=== PATIENT | male | born 1970 | race Caucasian/White ===

== ENCOUNTER 2022-05-19 22:59 | Inpatient (IN) ==
[2022-05-19] MEDS ORDERED: SODIUM CHLORIDE 0.9% 1000ML 1,000 ML IV ONE (23:40)
[2022-05-19] MEDS ORDERED: FAMOTIDINE 20MG IV PUSH 20 MG/5 ML SYR IV STA (23:40)
[2022-05-19] MEDS ORDERED: LORazepam 2 MG/1 ML VIAL IV STA (23:53)
[2022-05-19] MEDS ORDERED: GABAPENTIN 600 MG TAB PO ONE (23:57)
[2022-05-19] MEDS ORDERED: GABAPENTIN 1200MG ALCOHOL WITHDRAWAL LOAD PO STA (23:57)
--- NOTE | 2022-05-20 00:04 | Emergency Department Note ---
Impression & Plan Alcohol abuse, Alcohol withdrawal, Vomiting ED Provider Note CHIEF COMPLAINT: Alcohol intoxication, vomiting HISTORY OF PRESENT ILLNESS: This 52-year-old male patient presents to the emergency department with history of alcohol abuse and dependency. Patient is currently homeless and staying in a local motel, states he was in the emergency department several days ago. He went home and began drinking once again. Patient had severe withdrawal symptoms after repetitive vomiting and attempted to drink a 750 mL gin today. He states he vomited everything that he drank. He does not believe that he is significantly intoxicated at this time rather is asking for "sedatives" for his symptoms. He is concerned that Ativan will not be strong enough. Patient is mostly complaining of throat pain from the vomiting and anxiety. He states he would like to stay in the hospital for alcohol withdrawal/detox. REVIEW OF SYSTEMS: A review of systems was performed with positives and pertinent negatives listed in the history of present illness. 10 systems were reviewed and are otherwise negative. ALLERGIES: see below MEDICATIONS: see below PMH: see below SOCIAL HISTORY: see below DDx:Overdose, toxicologic, alcohol withdrawal, hypoglycemia, electrolyte abnormalities, cardiac sources, intracerebral event, neurologic, trauma, as well as other pathologies. PHYSICAL EXAM: Vital signs reviewed. General: Agitated, disheveled 52-year-old male, writhing in bed. HEENT: No scleral icterus, PERRLA, neck supple. Atraumatic. Moist mucous membranes. Cardiovascular: Regular rate and rhythm, no extra sounds. Pulmonary: Clear to auscultation bilaterally, normal work of breathing. Abdomen: Soft, nontender, nondistended, positive bowel sounds. Musculoskeletal: Atraumatic, no peripheral edema. Neurologic: Patient awake alert and oriented x 3, speech is clear Skin: Warm, dry, no rash EMERGENCY DEPARTMENT COURSE/MDM: This patient was evaluated and appeared to be in no significant distress. IV access was obtained and laboratory work was drawn. The patient was placed on the satellite project site monitor and noted to be in a normal sinus rhythm at 91 bpm to my interpretation. Patient's EKG reveals no evidence of acute ischemia. Patient was hydrated with normal saline solution, 1 L bolus. He was medicated with IV Zofran and IV Pepcid. Patient was also given Ativan 2 mg IV for withdrawal symptoms. Blood alcohol is noted to be just under 300. Given the patient's lack of outpatient resources, desires for alcohol detox and vomiting/withdrawal symptoms, the patient was discussed with the hospitalist, Dr. Jauregui for admission and further management. MONITORING: An order for cardiac monitoring was placed and the patient is noted to be in a normal sinus rhythm at 98 beats per minute. 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: No Beliefs That Will Affect Care: None Current Living Situation: Homeless and Other Current Living Situation Comment: patient currently staying at [facility] in [place] Other Information That Helps Us Care for You: No Feels Safe at Home: Yes Safety Concerns: Feels Safe At This Time Assistive Devices: None Allergies Allergies Allergy/AdvReac Type Severity Reaction Status Date / Time No Known Allergies Allergy Verified 05/19/22 23:21 Home Meds Home Medications Medication Instructions Recorded Confirmed No Known Home Medications 05/19/22 05/19/22 Results & Data (ED) Vital Signs Vital Signs - 24 hr 05/19/22 23:16 05/20/22 00:19 05/20/22 00:22 Temperature 36.5 C Temperature Source Oral Pulse Rate 93 H Pulse Rate [Apical] 86 Pulse Rhythm [Apical] Regular Respiratory Rate 18 16 Respiratory Effort / Characteristics Non-Labored Spontaneous Non-Labored Spontaneous Respiratory Depth Normal Normal Respiratory Pattern Regular Regular Blood Pressure 129/80 Blood Pressure [Right Arm] 131/90 Blood Pressure Mean 96 Blood Pressure Mean [Right Arm] 103 Blood Pressure Position Lying Blood Pressure Position [Right Arm] Semi-fowlers Pulse Oximetry 98 90 96 Oxygen Delivery Method Room Air Room Air Nasal Cannula Nasal Cannula Oxygen Flow Rate 0 2 Sepsis Recent Fever Within 48 Hours No Sepsis New/Unexplained Change in Mental Status N/A Sepsis Action Taken by Nursing No Action Required Fraction of Inspired Oxygen - Titration 2 Pulse Oximetry Post Tiitration 96 05/20/22 01:17 05/20/22 01:18 Temperature Temperature Source Pulse Rate Pulse Rate [Apical] 91 H Pulse Rhythm [Apical] Respiratory Rate 14 Respiratory Effort / Characteristics Non-Labored Spontaneous Respiratory Depth Normal Respiratory Pattern Regular Blood Pressure Blood Pressure [Right Arm] 132/85 Blood Pressure Mean Blood Pressure Mean [Right Arm] 100 Blood Pressure Position Blood Pressure Position [Right Arm] Semi-fowlers Pulse Oximetry 96 96 Oxygen Delivery Method Nasal Cannula Nasal Cannula Oxygen Flow Rate 2 2 Sepsis Recent Fever Within 48 Hours Sepsis New/Unexplained Change in Mental Status Sepsis Action Taken by Nursing Fraction of Inspired Oxygen - Titration Pulse Oximetry Post Tiitration Home Medications Current Medication List: was personally reviewed by me Laboratory Data Attestation: I reviewed the patient's lab results. 05/19/22 23:41 05/19/22 23:41 Lab Results 05/19/22 05/19/22 05/19/22 Range/Units 23:40 23:41 23:41 WBC 5.33 (4.8-10.8) K/ul RBC 4.76 (4.70-6.10) M/uL Hgb 14.3 (14.0-18.0) g/dl Hct 41.2 L (42.0-52.0) % MCV 86.6 (80.0-100.0) fL MCH 30.0 (25.0-34.0) pg MCHC 34.7 (32.0-36.0) g/dL RDW Std Deviation 40.9 (36.4-46.3) fL RDW Coeff of Otto 12.9 (11.5-14.5) % Plt Count 153 (130-400) K/uL MPV 9.9 (9.4-12.4) fL Immature Gran % (Auto) 0.2 % Neut % (Auto) 62.8 % Lymph % (Auto) 31.9 % [place] % (Auto) 4.9 % Eos % (Auto) 0.0 % Baso % (Auto) 0.2 % Neut # (Auto) 3.35 (1.40-6.50) K/uL Lymph # (Auto) 1.70 (1.2-3.4) K/uL [place] # (Auto) 0.26 (0.11-0.59) K/uL Eos # (Auto) 0.00 (0-0.50) K/uL Baso # (Auto) 0.01 (0-0.2) K/uL Immature Gran # (Auto) 0.01 (0.01-0.20) K/uL Sodium 137 (136-145) mmol/L Potassium 3.1 L (3.5-5.1) mmol/L Chloride 92 L (98-107) mmol/L Carbon Dioxide 33 H (21-32) mmol/L Anion Gap 12 H (3-11) BUN 13 (6-23) mg/dl Creatinine 0.69 (0.6-1.4) mg/dl Est Cr Clr Drug Dosing Not Reportable Est GFR ( Amer) 127.4 ml/min Est GFR (Non-Af Amer) 109.9 ml/min BUN/Creatinine Ratio 18.8 (10-20) Glucose 148 H (70-99(Fasting)) mg/dl Calcium 8.5 (8.5-10.1) mg/dl Phosphorus 2.3 L (2.5-4.9) mg/dl Magnesium 2.0 (1.7-2.4) mg/dl Total Bilirubin 0.7 (0.2-1.0) mg/dl AST 60 H (13-39) U/L ALT 44 (7-52) U/L Alkaline Phosphatase 83 (34-104) U/L Total Protein 7.1 (6.0-8.3) gm/dl Albumin 4.0 (3.4-5.0) gm/dl Globulin 3.1 (2.5-4.0) gm/dl Albumin/Globulin Ratio 1.3 (0.9-2) Lipase 22 (11-82) U/L Ethyl Alcohol mg/dL (<10.0) mg/dl SARS-CoV-2, RNA, NAAT (NEGATIVE) 05/19/22 05/19/22 05/20/22 Range/Units 23:41 23:41 00:09 WBC (4.8-10.8) K/ul RBC (4.70-6.10) M/uL Hgb (14.0-18.0) g/dl Hct (42.0-52.0) % MCV (80.0-100.0) fL MCH (25.0-34.0) pg MCHC (32.0-36.0) g/dL RDW Std Deviation (36.4-46.3) fL RDW Coeff of Otto (11.5-14.5) % Plt Count (130-400) K/uL MPV (9.4-12.4) fL Immature Gran % (Auto) % Neut % (Auto) % Lymph % (Auto) % [place] % (Auto) % Eos % (Auto) % Baso % (Auto) % Neut # (Auto) (1.40-6.50) K/uL Lymph # (Auto) (1.2-3.4) K/uL [place] # (Auto) (0.11-0.59) K/uL Eos # (Auto) (0-0.50) K/uL Baso # (Auto) (0-0.2) K/uL Immature Gran # (Auto) (0.01-0.20) K/uL Sodium (136-145) mmol/L Potassium (3.5-5.1) mmol/L Chloride (98-107) mmol/L Carbon Dioxide (21-32) mmol/L Anion Gap (3-11) BUN (6-23) mg/dl Creatinine (0.6-1.4) mg/dl Est Cr Clr Drug Dosing Est GFR ( Amer) ml/min Est GFR (Non-Af Amer) ml/min BUN/Creatinine Ratio (10-20) Glucose (70-99(Fasting)) mg/dl Calcium (8.5-10.1) mg/dl Phosphorus (2.5-4.9) mg/dl Magnesium (1.7-2.4) mg/dl Total Bilirubin (0.2-1.0) mg/dl AST (13-39) U/L ALT (7-52) U/L Alkaline Phosphatase (34-104) U/L Total Protein (6.0-8.3) gm/dl Albumin (3.4-5.0) gm/dl Globulin (2.5-4.0) gm/dl Albumin/Globulin Ratio (0.9-2) Lipase (11-82) U/L Ethyl Alcohol mg/dL 279.0 H Cancelled (<10.0) mg/dl SARS-CoV-2, RNA, NAAT NEGATIVE (NEGATIVE) Administered Medications Chlordiazepoxide HCl (Chlordiazepoxide Hcl 25 Mg Cap) 50 mg PO Q6H ARTHUR; Taper Stop: 05/23/22 04:29 Last Admin: 05/20/22 04:42 Dose: 50 mg Documented By: MEAGHAN Multivitamins 10 ml/ Thiamine HCl 100 mg/ Folic Acid 1 mg/Sodium Chloride 1,011.2 mls @ 500 mls/hr IV .Q2H2M ONE Stop: 05/20/22 06:16 Last Admin: 05/20/22 04:41 Dose: 500 mls/hr Documented By: MEAGHAN Discontinued Medications Gabapentin (Gabapentin 1200mg Alcohol Withdrawal Load) 1 each PO NOW STA; Protocol Stop: 05/19/22 23:58 Last Admin: 05/20/22 00:17 Dose: Not Given Documented By: MEAGHAN Gabapentin (Gabapentin 600 Mg Tab) 1,200 mg PO NOW ONE Stop: 05/19/22 23:58 Last Admin: 05/20/22 00:04 Dose: 1,200 mg Documented By: MEAGHAN Sodium Chloride (Nss 1000ml) 1,000 mls @ 999 mls/hr IV .Q1H1M ONE Stop: 05/20/22 00:40 Last Infusion: 05/20/22 00:46 Dose: 0 mls/hr Documented By: Admin: 05/19/22 23:45 Dose: 999 mls/hr Documented By: MEAGHAN Famotidine (Pepcid 20mg Iv Push) 20 mg in 5 mls @ 2.5 mls/min IV NOW STA Stop: 05/19/22 23:41 Last Admin: 05/20/22 00:04 Dose: 2.5 mls/min Documented By: MEAGHAN Lorazepam (Lorazepam 2 Mg/1 Ml Vial) 2 mg IV NOW STA Stop: 05/19/22 23:54 Last Admin: 05/20/22 00:04 Dose: 2 mg Documented By: MEAGHAN Discharge Plan Visit Data Chief Complaint: Alcohol Intoxication Stated Complaint: ALCOHOL OVERDOSE/ANXIETY ED Provider: Tabitha Murrell Discharge Problem: Alcohol abuse, Alcohol withdrawal, Vomiting Patient Disposition: Admitted As Inpatient Discharge Instructions Interventions: ED Discharge Assessment Last Done: 05/20/22 03:57
[2022-05-20 00:07] LABS: Basophils # (auto) 0.01 K/uL (0-0.2); Basophils % (auto) 0.2 %; Hematocrit (blood only) 41.2 % (42.0-52.0); Hemoglobin 14.3 g/dl (14.0-18.0); Immature Granulocytes # (auto) 0.01 K/uL (0.01-0.20); Immature Granulocytes % (auto) 0.2 %; Lymphocytes % (auto) 31.9 %; Mean Corpuscular Hgb Conc 34.7 g/dL (32.0-36.0); Mean Corpuscular Volume 86.6 fL (80.0-100.0); Mean Platelet Volume 9.9 fL (9.4-12.4); Monocytes # (auto) 0.26 K/uL (0.11-0.59); Monocytes % (auto) 4.9 %; Neutrophils # (auto) 3.35 K/uL (1.40-6.50); Neutrophils % (auto) 62.8 %; Platelet Count 153 K/uL (130-400); RDW Coefficient of Variation 12.9 % (11.5-14.5); RDW Standard Deviation 40.9 fL (36.4-46.3); Red Blood Count 4.76 M/uL (4.70-6.10); White Blood Count 5.33 K/ul (4.8-10.8)
[2022-05-20 00:19] LABS: Alanine Aminotransferase 44 U/L (7-52); Albumin Globulin Ratio 1.3 (0.9-2); Alkaline Phosphatase 83 U/L (34-104); Anion Gap 12 (3-11); Aspartate Aminotransferase 60 U/L (13-39); BUN Creatinine Ratio 18.8 (10-20); Bilirubin,Total 0.7 mg/dl (0.2-1.0); Blood Urea Nitrogen 13 mg/dl (6-23); Calcium 8.5 mg/dl (8.5-10.1); Carbon Dioxide 33 mmol/L (21-32); Chloride 92 mmol/L (98-107); Est GFR (African American) 127.4 ml/min; Est GFR (Non-African American) 109.9 ml/min; Globulin 3.1 gm/dl (2.5-4.0); Glucose 148 mg/dl (70-99(Fasting)); Potassium 3.1 mmol/L (3.5-5.1); Sodium 137 mmol/L (136-145); Total Protein 7.1 gm/dl (6.0-8.3)
[2022-05-20 01:01] LABS: Phosphorus 2.3 mg/dl (2.5-4.9)
--- NOTE | 2022-05-20 01:44 | History & Physical Report ---
Date of Service May 20, 2022 Assessment & Plan (1) Alcohol abuse: Plan: EtOH abuse and withdrawal. Patient with longstanding history of EtOH abuse with withdrawal symptoms. Last drink 05/19/22 around 20:00. Presently HD stable, no tremor, he just received 2mg of IV Ativan and Gabapentin as well. -Admit to medical with telemetry -Initiate Librium per protocol -AWSS with IV Ativan as needed -Banana bag x 500mL ordered -K and PO4 repletion with 9mmol KPhos -Thiamine and B12 daily Numbness and tingling patient reports numbness and tingling in his bilateral fingertips, arms and perioral prior to arrival. Symptoms have markedly improved. No focal neurologic deficits. Suspect anxiety largely contributing to these transient symptoms. -Continue to monitor (2) Depression: Plan: Depression patient reports depression. His home medications include Fluoxetine, Wellbutrin and Trazodone and Hydroxyzine for sleep. He reports he has not been taking his medications for a long while. He does not routinely follow with a PCP. -Will hold off on initiating home medications for now. -Request records from [facility] rehab -Consider Psychiatry consultation (3) GERD (gastroesophageal reflux disease): Plan: GERD patient reports severe GERD symptoms. He is on Omeprazole at home but has not been taking it recently -Protonix 40mg po daily History of Present Illness Primary Care Provider: NO PCP Migue Bellamy is a 52yo male with history of EtOH abuse with pancreatitis, Depression and GERD presenting requesting medical alcohol detox. Patient is originally from [place]. He recently completed rehabilitation at [facility]. He has been living in a hotel locally. He unfortunately started drinking again, reports drinking approximately 1/5L of gin daily. He tried to cut back on his alcohol intake but began feeling ill. He also began having some hallucinations today and started feeling some numbness and tingling in his bilateral fingertips and around his mouth. His last drink was 05/19/22 around 20:00. Patient reports diffuse abdominal pain as well as vomiting for several days. He has had poor appetite and has not eaten much over the last several days. Patient has longstanding history of EtOH abuse. He has been to rehab in the past as well as detox programs. He participates in AA as well. Prior withdrawal symptoms include nausea, tremors and occasional hallucinations. No history of seizures. In the ER he is afebrile, HD stable. He reports feeling tremulous which improved with Ativan. No additional complaints at this time. Allergies Allergy/AdvReac Type Severity Reaction Status Date / Time No Known Allergies Allergy Verified 05/19/22 23:21 Home Medications Medication Instructions Recorded Confirmed Type No Known Home Medications 05/19/22 05/19/22 History Past Med/Surg History Medical History (Updated 05/20/22 @ 02:51 by Shae Jauregui DO) Alcoholic intoxication Depression GERD (gastroesophageal reflux disease) Surgical History (Updated 05/20/22 @ 02:51 by Shae Jauregui DO) No significant past surgical history Family History (Updated 05/20/22 @ 02:52 by Shae Jauregui DO) Other No significant family history Social History Smoking Status: Never smoker Preferred Language: Lao Feels Safe at Home: Yes Review of Systems Review of Systems: All systems reviewed & are unremarkable except as noted in HPI & below Physical Exam Physical Exam: General: patient resting comfortably, NAD, non-toxic in appearance, AA&O x 4 Skin: warm, dry, intact, no rashes or lesions HEENT: NC/AT, PERRL, EOMI, anicteric sclera, conjunctiva without injection, external ear normal to inspection and nontender, nares patent, moist mucus membranes, dentition intact, no oropharyngeal lesions, neck supple, trachea midline, no LAD, no thyromegaly, no JVD Heart: +S1/S2, regular, no m/r/g Lungs: equal air entry bilaterally, no rales/rhonchi/wheezes Abd: +BS, soft, diffusely tender with no rebound/guarding or peritonitis Ext: warm, 2+ pulses in UE/LE bilaterally, no clubbing/cyanosis or edema Neuro: nonfocal, patient AA&O x 4, speech intact, no facial droop, moving all extremities on command with equal strength 5/5 Results & Data Results & Data ([facility]) Vital Signs (Past 12 Hours) Vital Signs Temp Pulse Pulse Resp BP BP Pulse Ox 05/20/22 01:18 96 05/20/22 01:17 91 H 14 132/85 96 05/20/22 00:22 86 16 131/90 96 05/20/22 00:19 90 05/19/22 23:16 36.5 C 93 H 18 129/80 98 O2 Del Method O2 Flow Rate 05/20/22 01:18 Nasal Cannula 2 05/20/22 01:17 Nasal Cannula 2 05/20/22 00:22 Nasal Cannula 2 05/20/22 00:19 Room Air, Nasal Cannula 0 05/19/22 23:16 Room Air Laboratory Results Laboratory Results WBC 5.33 K/ul (4.8-10.8) 05/19/22 23:41 RBC 4.76 M/uL (4.70-6.10) 05/19/22 23:41 Hgb 14.3 g/dl (14.0-18.0) 05/19/22 23:41 Hct 41.2 % (42.0-52.0) L 05/19/22 23:41 MCV 86.6 fL (80.0-100.0) 05/19/22 23:41 MCH 30.0 pg (25.0-34.0) 05/19/22 23:41 MCHC 34.7 g/dL (32.0-36.0) 05/19/22 23:41 RDW Std Deviation 40.9 fL (36.4-46.3) 05/19/22 23:41 RDW Coeff of Otto 12.9 % (11.5-14.5) 05/19/22 23:41 Plt Count 153 K/uL (130-400) 05/19/22 23:41 MPV 9.9 fL (9.4-12.4) 05/19/22 23:41 Immature Gran % (Auto) 0.2 % 05/19/22 23:41 Neut % (Auto) 62.8 % 05/19/22 23:41 Lymph % (Auto) 31.9 % 05/19/22 23:41 [place] % (Auto) 4.9 % 05/19/22 23:41 Eos % (Auto) 0.0 % 05/19/22 23:41 Baso % (Auto) 0.2 % 05/19/22 23:41 Neut # (Auto) 3.35 K/uL (1.40-6.50) 05/19/22 23:41 Lymph # (Auto) 1.70 K/uL (1.2-3.4) 05/19/22 23:41 [place]oca # (Auto) 0.26 K/uL (0.11-0.59) 05/19/22 23:41 Eos # (Auto) 0.00 K/uL (0-0.50) 05/19/22 23:41 Baso # (Auto) 0.01 K/uL (0-0.2) 05/19/22 23:41 Immature Gran # (Auto) 0.01 K/uL (0.01-0.20) 05/19/22 23:41 Sodium 137 mmol/L (136-145) 05/19/22 23:41 Potassium 3.1 mmol/L (3.5-5.1) L 05/19/22 23:41 Chloride 92 mmol/L (98-107) L 05/19/22 23:41 Carbon Dioxide 33 mmol/L (21-32) H 05/19/22 23:41 Anion Gap 12 (3-11) H 05/19/22 23:41 BUN 13 mg/dl (6-23) 05/19/22 23:41 Creatinine 0.69 mg/dl (0.6-1.4) 05/19/22 23:41 Est Cr Clr Drug Dosing Not Reportable 05/19/22 23:41 Est GFR ( Amer) 127.4 ml/min 05/19/22 23:41 Est GFR (Non-Af Amer) 109.9 ml/min 05/19/22 23:41 BUN/Creatinine Ratio 18.8 (10-20) 05/19/22 23:41 Glucose 148 mg/dl (70-99(Fasting)) H 05/19/22 23:41 Calcium 8.5 mg/dl (8.5-10.1) 05/19/22 23:41 Phosphorus 2.3 mg/dl (2.5-4.9) L 05/19/22 23:41 Magnesium 2.0 mg/dl (1.7-2.4) 05/19/22 23:41 Total Bilirubin 0.7 mg/dl (0.2-1.0) 05/19/22 23:41 AST 60 U/L (13-39) H 05/19/22 23:41 ALT 44 U/L (7-52) 05/19/22 23:41 Alkaline Phosphatase 83 U/L (34-104) 05/19/22 23:41 Total Protein 7.1 gm/dl (6.0-8.3) 05/19/22 23:41 Albumin 4.0 gm/dl (3.4-5.0) 05/19/22 23:41 Globulin 3.1 gm/dl (2.5-4.0) 05/19/22 23:41 Albumin/Globulin Ratio 1.3 (0.9-2) 05/19/22 23:41 Ethyl Alcohol mg/dL 279.0 mg/dl (<10.0) H 05/19/22 23:41 Ethyl Alcohol mg/dL Cancelled 05/19/22 23:41 SARS-CoV-2, RNA, NAAT NEGATIVE (NEGATIVE) 05/20/22 00:09 PG Care Time/CCT Total # of Minutes Spent Total Time Spent with Patient: Total time spent is greater than 50% in coordination of care (as documented) at patient's floor/unit and/or counseling patient: Coding Level of Care Code 58854 INT INP/OBS CARE 2/55MIN Diagnoses Alcohol abuse F10.10 Depression F32.A GERD (gastroesophageal reflux disease) K21.9
[2022-05-20] MEDS ORDERED: POTASSIUM PHOS 3 MMOL/1 ML INFUSION IV STA (03:57)
[2022-05-20] MEDS ORDERED: LORazepam 2 MG/1 ML VIAL IV PRN (03:57)
[2022-05-20] MEDS ORDERED: Ativan IV Alcohol Withdrawal--Active Protocol IV PRN (03:57)
[2022-05-20] MEDS ORDERED: chlordiazePOXIDE ALCOHOL WITHDRAWL 50MG PO STA (03:57)
[2022-05-20] MEDS ORDERED: MULTI-VITAMIN INFUSION 10 ML, THIAMINE HCL 100 MG, FOLIC ACID 1 MG in SODIUM CHLORIDE 0... IV ONE (04:15)
[2022-05-20] MEDS: chlordiazePOXIDE HCl 25 MG CAP PO SCH ×4 (04:42→22:07)
[2022-05-20] MEDS ORDERED: GABAPENTIN 600 MG TAB PO SCH ×2 (06:00→20:00)
[2022-05-20] MEDS ORDERED: POTASSIUM PHOSPHATE 9 MMOL in SODIUM CHLORIDE 0.9% 250 ML IV ONE (06:00)
[2022-05-20] MEDS ORDERED: THIAMINE HCL 100 MG TAB PO SCH (09:00)
[2022-05-20] MEDS ORDERED: FOLIC ACID 1 MG TAB PO SCH (09:00)
[2022-05-20] MEDS ORDERED: CHLORASEPTIC 1.4% SOLN 180 ML BTL MT PRN (09:38)
[2022-05-20] MEDS ORDERED: ACETAMINOPHEN 1,000 MG/100 ML VIAL IV STA (09:38)
[2022-05-20] MEDS ORDERED: KETOROLAC TROMETHAMINE 15 MG/ML VIAL IV ONE (09:38)
[2022-05-20] MEDS: FOLIC ACID 1 MG in SYRINGE 9.8 ML IV SCH (09:41)
[2022-05-20] MEDS: THIAMINE HCL 200 MG in SODIUM CHLORIDE 0.9% 50 ML IV SCH (09:42)
[2022-05-20] MEDS: LORazepam 2 MG/1 ML VIAL IV PRN ×5 (10:30→22:08)
--- NOTE | 2022-05-20 11:19 | Hospitalist Progress Note ---
Date of Service May 20, 2022 Assessment & Plan (1) Alcohol abuse: Plan: EtOH abuse and withdrawal. Patient with longstanding history of EtOH abuse with withdrawal symptoms. Last drink 05/19/22 around 20:00. Presently HD stable -Received Ativan and gabapentin, banana bag and KPO4 repletion in ER -Continue Librium taper and AWSS protocol for withdrawal -Continue thiamine and folate daily -Withdrawal symptoms do appear to be improving and benign neurologic exam thus far -Ultimately plan to d/c to inpatient detox program Throat pain -Suspect this is secondary to his emesis episodes -Continual emesis has resolved, I do not suspect a Shayla Dong tear/Boerhaave syndrome at present -Continue to monitor -Tylenol, Toradol PRN for pain Depression patient reports depression. He does not routinely follow with a PCP. -Will hold off on initiating home medications for now- Prozac, Wellbutrin, trazodone, Vistaril -[facility] -Consider psychiatry consultation given his substance use and psychosocial risk factors as pt's mentation improves GERD patient reports severe GERD symptoms. He is on Omeprazole at home but has not been taking it recently -Protonix 40mg IV daily FENGI: Regular Code status: Full DVT ppx: SCDs Isolation: None Dispo: Ultimately to inpatient rehab (2) Depression: (3) GERD (gastroesophageal reflux disease): Admission and Anticipated Discharge Date Admission Date: May 20, 2022 Supervising Physician Co-Signing Physician Notes Patient admitted after multiple recent ER visits secondary to alcohol intoxication. He has history of alcohol dependence and has come from [facility] in [place] after being in the rehab facility for 30 days. He is originally from [facility] and is currently homeless. He states that he has burned bridges with his family back in [place] and is homeless. He does state that he has health insurance but is currently admitted for monitoring after recent alcohol intoxication. He would be interested in naltrexone. Tomorrow, will start naltrexone as long as liver enzymes are stable Continue with RICKEY protocol and screening Discuss intense alcohol rehab; case management consulted Patient does have ongoing esophagitis so continue with PPI; if symptoms worsen or do not improve consider EGD Subjective No acute events overnight. Pt reports mild improvement in his symptoms from admission but still experiencing malaise, throat pain and nausea. He did request opioid pain medication but was amenable to trying Tylenol/Toradol first. Denies cravings for alcohol, no tremors/sweating during my evaluation. Review of Systems Review of Systems: Per HPI Physical Exam Physical Exam: General: patient resting comfortably, NAD, non-toxic in appearance Skin: warm, dry, intact, no rashes or lesions HEENT: NC/AT, PERRL, EOMI, anicteric sclera, conjunctiva without injection, external ear normal to inspection and nontender, nares patent, moist mucus membranes, dentition intact, no oropharyngeal lesions, neck supple, trachea midline, no LAD, no thyromegaly, no JVD Heart: +S1/S2, regular, no m/r/g Lungs: equal air entry bilaterally, no rales/rhonchi/wheezes Abd: +BS, soft, mild diffuse tenderness with no rebound/guarding or peritonitis Ext: warm, 2+ pulses in UE/LE bilaterally, no clubbing/cyanosis or edema Neuro: nonfocal, patient AA&O x 3, speech intact, no facial droop, moving all extremities on command with equal strength 5/5 Results & Data Results & Data ([facility] [place]) Vital Signs (Past 12 Hours) Vital Signs Temp Pulse Pulse Resp BP BP Pulse Ox 05/20/22 09:39 36.8 C 87 22 154/107 H 98 05/20/22 04:00 05/20/22 04:00 36.7 C 87 16 124/84 95 05/20/22 02:53 85 16 120/81 93 05/20/22 01:18 96 05/20/22 01:17 91 H 14 132/85 96 05/20/22 00:22 86 16 131/90 96 05/20/22 00:19 90 05/19/22 23:16 36.5 C 93 H 18 129/80 98 Pulse Ox O2 Del Method O2 Del Method O2 Flow Rate 05/20/22 09:39 Room Air 05/20/22 04:00 95 Room Air 05/20/22 04:00 Room Air 05/20/22 02:53 Room Air 05/20/22 01:18 Nasal Cannula 2 05/20/22 01:17 Nasal Cannula 2 05/20/22 00:22 Nasal Cannula 2 05/20/22 00:19 Room Air, Nasal Cannula 0 05/19/22 23:16 Room Air Resident Activity Tracking Resident Involvement: Resident Care Provided Care Provided: Adult Hospital Medicine
[2022-05-20] MEDS: PANTOprazole 40 MG in SYRINGE 0 ML IV SCH (15:05)
[2022-05-20] MEDS: ACETAMINOPHEN 325 MG TAB PO PRN ×2 (15:20→19:42)
[2022-05-20] MEDS: FAMOTIDINE 20 MG in SYRINGE 3 ML IV SCH (21:07)
[2022-05-21] MEDS: LORazepam 2 MG/1 ML VIAL IV PRN ×5 (01:02→20:30)
[2022-05-21] MEDS ORDERED: ONDANSETRON INJ 2 MG/ML 2 ML VIAL IV STA (01:10)
[2022-05-21] MEDS: chlordiazePOXIDE HCl 25 MG CAP PO SCH ×3 (04:56→20:32)
--- NOTE | 2022-05-21 06:41 | Hospitalist Progress Note ---
Date of Service May 21, 2022 Assessment & Plan (1) Alcohol abuse: Plan: This is a 52-year-old male with a history of alcohol use disorder with recent rehab completion at [facility], pancreatitis, depression, GERD who presented to [facility] requesting medical alcohol detox assistance. He remains hospitalized for oversight and management of withdrawal. Alcohol Withdrawal / Alcohol Use Disorder -- reports consuming 750cc of gin/day; last drink 05/19/22 around 20:00.No h/o seizures. -Continue Librium taper and AWSS protocol for withdrawal -Continue IV thiamine and folate repletion while here -AUD: Has participated in inpatient rehab programs in the past, AA -- should consider initiation of naltrexone (IM/PO) prior to departure if amenable, extensive conversation at bedside today (can also discuss SMART) -Withdrawal symptoms do appear to be improving and benign neurologic exam thus far -Ultimately would like to d/c to inpatient detox program; will d/w case management given that patient is homeless and does not have formal identification -IV PPI -- will continue for now -Depression management as below Depression patient reports depression. He does not routinely follow with a PCP. -Request records from [facility] -- pending, working with CM -Reportedly on fluoxetine, bupropion, trazodone, hydroxyzine -- restart GERD patient reports severe GERD symptoms. He is on Omeprazole at home but has not been taking it recently -Protonix 40mg IV daily Throat pain -Suspect this is secondary to his emesis episodes -Continue to monitor FENGI: Regular Code status: Full DVT ppx: SCDs Isolation: None Dispo: CM assisting. Unclear. (2) Depression: (3) GERD (gastroesophageal reflux disease): Admission and Anticipated Discharge Date Admission Date: May 20, 2022 Supervising Physician Co-Signing Physician Notes Patient admitted after multiple recent ER visits secondary to alcohol intoxication. He has history of alcohol dependence and has come from [facility] in [place] after being in the rehab facility for 30 days. He is originally from [facility] and is currently homeless. He states that he has burned bridges with his family back in [place] and is homeless. He does state that he has health insurance but is currently admitted for monitoring after recent alcohol intoxication. He would be interested in naltrexone. Tomorrow, will start naltrexone as long as liver enzymes are stable Continue with RICKEY protocol and screening Discuss intense alcohol rehab; case management consulted Patient does have ongoing esophagitis so continue with PPI; if symptoms worsen or do not improve consider EGD Subjective I also saw the patient with the resident physician and confirmed finley portions of history and physical examination. I agree with the impression and plan as noted in resident documentation. 137/88, 83, 20, 36.3, 97% on room air Exam per resident note Data Hemoglobin 12.1, platelet count 103 Sodium 136, potassium 2.9, BUN 9, creatinine 0.59 AST 46, ALT 36 Impression and plan Alcohol abuse Depression Anemia/thrombocytopenia, likely secondary to alcoholic marrow suppression Continue Librium taper IV thiamine and folate repletion Restart home medications Replete serum potassium and recheck in a.m. Additional diagnoses per resident documentation Review of Systems Review of Systems: as per HPI Physical Exam Physical Exam: General: Tired appearing 52-year old male who is alert, oriented, and appears in no acute distress. Trmors noted in upper extremities with outstretched hands HEENT: NCAT. - Eyes - Sclera are white, anicteric, and without injection. - Mouth - MMM - Neck - supple, no appreciable JVD Cardiac: Normal rate and regular rhythm; S1 and S2 present with no murmurs, rubs, or gallops. Pulmonary: Good respiratory effort with symmetric expansion of the chest. No use of accessory muscles. Lungs were clear to auscultation bilaterally with no crackles or wheezes. Abdominal: Normoactive bowel sounds. Abdomen was soft, nondistended, and non- tender to palpation. Results & Data Results & Data ([facility]) Vital Signs (Past 12 Hours) Vital Signs Temp Pulse Pulse Pulse Resp BP BP 05/21/22 05:50 84 18 131/93 05/21/22 03:37 84 18 137/81 05/21/22 02:06 36.4 C L 79 18 148/100 H 05/21/22 01:34 84 05/21/22 00:54 36.7 C 98 H 20 160/115 H 05/20/22 21:55 36.9 C 90 20 122/79 05/20/22 19:34 37.1 C 94 H 18 153/91 H Pulse Ox O2 Del Method 05/21/22 05:50 98 Room Air 05/21/22 03:37 98 Room Air 05/21/22 02:06 95 Room Air 05/21/22 01:34 05/21/22 00:54 98 Room Air 05/20/22 21:55 96 Room Air 05/20/22 19:34 96 Room Air Resident Activity Tracking Resident Involvement: Resident Care Provided Care Provided: Adult Hospital Medicine
[2022-05-21 07:40] LABS: Albumin Level 3.3 gm/dl (3.4-5.0); Anion Gap 8 (3-11); Bilirubin,Total 0.9 mg/dl (0.2-1.0); Calcium 8.6 mg/dl (8.5-10.1); Carbon Dioxide 29 mmol/L (21-32); Chloride 99 mmol/L (98-107); Potassium 2.9 mmol/L (3.5-5.1); Sodium 136 mmol/L (136-145)
[2022-05-21 07:46] LABS: Hematocrit (blood only) 34.8 % (42.0-52.0); Hemoglobin 12.1 g/dl (14.0-18.0); Mean Corpuscular Hemoglobin 30.7 pg (25.0-34.0); Mean Corpuscular Hgb Conc 34.8 g/dL (32.0-36.0); Mean Corpuscular Volume 88.3 fL (80.0-100.0); Mean Platelet Volume 10.5 fL (9.4-12.4); Platelet Count 103 K/uL (130-400); Platelet Estimate Decreased (Normal); RDW Coefficient of Variation 12.7 % (11.5-14.5); RDW Standard Deviation 41.3 fL (36.4-46.3); Red Blood Count 3.94 M/uL (4.70-6.10); White Blood Count 4.25 K/ul (4.8-10.8)
[2022-05-21 07:52] LABS: Alanine Aminotransferase 36 U/L (7-52); Albumin Globulin Ratio 1.2 (0.9-2); Alkaline Phosphatase 74 U/L (34-104); Aspartate Aminotransferase 46 U/L (13-39); BUN Creatinine Ratio 15.3 (10-20); Blood Urea Nitrogen 9 mg/dl (6-23); Est GFR (African American) 135.9 ml/min; Est GFR (Non-African American) 117.2 ml/min; Globulin 2.7 gm/dl (2.5-4.0); Glucose 171 mg/dl (70-99(Fasting)); Phosphorus 3.4 mg/dl (2.5-4.9)
[2022-05-21] MEDS: ALUMINUM/MAGNESIUM SUSP 72 ML, LIDOCAINE VISCOUS 2% SOLN 24 ML, BARCODE IDENTIFIER 1 EACH PO PRN ×2 (08:30→17:09)
[2022-05-21] MEDS: ACETAMINOPHEN 325 MG TAB PO PRN ×2 (08:30→20:32)
[2022-05-21] MEDS: FOLIC ACID 1 MG in SYRINGE 9.8 ML IV SCH (08:36)
[2022-05-21] MEDS: THIAMINE HCL 200 MG in SODIUM CHLORIDE 0.9% 50 ML IV SCH (09:23)
[2022-05-21] MEDS: FAMOTIDINE 20 MG in SYRINGE 3 ML IV SCH ×2 (09:23→20:32)
[2022-05-21] MEDS ORDERED: POTASSIUM CHLORIDE 20 MEQ/15 ML UDC PO STA ×2 (10:08→16:43)
[2022-05-21] MEDS: POTASSIUM CHLORIDE / WTR 10 MEQ/100 ML PLCT IV SCH ×3 (10:23→11:55)
[2022-05-21] MEDS: PANTOprazole 40 MG in SYRINGE 0 ML IV SCH (11:14)
[2022-05-21] MEDS ORDERED: FLUoxetine HCL 20 MG CAP PO STA (20:31)
[2022-05-21] MEDS ORDERED: buPROPion XL 300 MG TABCR PO STA (20:31)
[2022-05-21] MEDS ORDERED: GABAPENTIN 600 MG TAB PO SCH (23:45)
[2022-05-22] MEDS: chlordiazePOXIDE HCl 25 MG CAP PO SCH ×2 (05:12→13:04)
[2022-05-22] MEDS: FOLIC ACID 1 MG in SYRINGE 9.8 ML IV SCH (08:32)
[2022-05-22 08:59] LABS: Hematocrit (blood only) 35.9 % (42.0-52.0); Hemoglobin 12.2 g/dl (14.0-18.0); Mean Corpuscular Hemoglobin 29.9 pg (25.0-34.0); Mean Platelet Volume 11.2 fL (9.4-12.4); Platelet Count 110 K/uL (130-400); RDW Standard Deviation 41.3 fL (36.4-46.3); Red Blood Count 4.08 M/uL (4.70-6.10); White Blood Count 4.93 K/ul (4.8-10.8)
[2022-05-22 09:12] LABS: Basophils # (auto) 0.01 K/uL (0-0.2); Basophils % (auto) 0.2 %; Immature Granulocytes # (auto) 0.02 K/uL (0.01-0.20); Immature Granulocytes % (auto) 0.4 %; Lymphocytes # (auto) 1.55 K/uL (1.2-3.4); Lymphocytes % (auto) 31.4 %; Monocytes # (auto) 0.21 K/uL (0.11-0.59); Monocytes % (auto) 4.3 %; Neutrophils # (auto) 3.04 K/uL (1.40-6.50); Neutrophils % (auto) 61.7 %
[2022-05-22] MEDS: FAMOTIDINE 20 MG in SYRINGE 3 ML IV SCH (09:32)
[2022-05-22] MEDS: THIAMINE HCL 200 MG in SODIUM CHLORIDE 0.9% 50 ML IV SCH (09:32)
[2022-05-22 12:37] LABS: Albumin Level 3.4 gm/dl (3.4-5.0); Anion Gap 7 (3-11); Bilirubin,Total 0.5 mg/dl (0.2-1.0); Calcium 8.6 mg/dl (8.5-10.1); Carbon Dioxide 28 mmol/L (21-32); Chloride 101 mmol/L (98-107); Magnesium 1.9 mg/dl (1.7-2.4); Sodium 136 mmol/L (136-145)
[2022-05-22 12:54] LABS: Alanine Aminotransferase 39 U/L (7-52); Albumin Globulin Ratio 1.3 (0.9-2); Alkaline Phosphatase 73 U/L (34-104); Aspartate Aminotransferase 47 U/L (13-39); BUN Creatinine Ratio 16.4 (10-20); Blood Urea Nitrogen 11 mg/dl (6-23); Est GFR (African American) 128.9 ml/min; Est GFR (Non-African American) 111.3 ml/min; Globulin 2.7 gm/dl (2.5-4.0); Glucose 205 mg/dl (70-99(Fasting)); Total Protein 6.1 gm/dl (6.0-8.3)
[2022-05-22] MEDS: PANTOprazole 40 MG in SYRINGE 0 ML IV SCH (13:04)
--- NOTE | 2022-05-22 14:17 | Discharge Summary ---
Date of Service May 22, 2022 Admission HPI Per Admitting Provider Migue Bellamy is a 52yo male with history of EtOH abuse with pancreatitis, Depression and GERD presenting requesting medical alcohol detox. Patient is originally from [place]. He recently completed rehabilitation at [facility]. He has been living in a hotel locally. He unfortunately started drinking again, reports drinking approximately 1/5L of gin daily. He tried to cut back on his alcohol intake but began feeling ill. He also began having some hallucinations today and started feeling some numbness and tingling in his bilateral fingertips and around his mouth. His last drink was 05/19/22 around 20:00. Patient reports diffuse abdominal pain as well as vomiting for several days. He has had poor appetite and has not eaten much over the last several days. Patient has longstanding history of EtOH abuse. He has been to rehab in the past as well as detox programs. He participates in AA as well. Prior withdrawal symptoms include nausea, tremors and occasional hallucinations. No history of seizures. In the ER he is afebrile, HD stable. He reports feeling tremulous which improved with Ativan. No additional complaints at this time. Admission Exam Per Admitting Provider General: patient resting comfortably, NAD, non-toxic in appearance, AA&O x 4 Skin: warm, dry, intact, no rashes or lesions HEENT: NC/AT, PERRL, EOMI, anicteric sclera, conjunctiva without injection, external ear normal to inspection and nontender, nares patent, moist mucus membranes, dentition intact, no oropharyngeal lesions, neck supple, trachea midline, no LAD, no thyromegaly, no JVD Heart: +S1/S2, regular, no m/r/g Lungs: equal air entry bilaterally, no rales/rhonchi/wheezes Abd: +BS, soft, diffusely tender with no rebound/guarding or peritonitis Ext: warm, 2+ pulses in UE/LE bilaterally, no clubbing/cyanosis or edema Neuro: nonfocal, patient AA&O x 4, speech intact, no facial droop, moving all extremities on command with equal strength 5/5 Principal Diagnosis alcohol withdrawal Discharge Exam GENERAL: No acute distress. Alert and oriented. Vital signs reviewed as above. EYES: EOMI. Anicteric sclerae. HENT: Moist mucous membranes. RESPIRATORY: Clear to auscultation bilaterally. No wheezing, rales, or rhonchi. CARDIOVASCULAR: Regular rate and rhythm. No murmurs. No JVD. ABDOMEN: Soft, non-tender and non-distended. Normal bowel sounds. SKIN: Warm, dry. NEUROLOGIC: Normal speech. No focal neurological deficits. PSYCHIATRIC: Slightly anxious affect but calm and cooperative. Discharge Data Allergies Allergy/AdvReac Type Severity Reaction Status Date / Time No Known Allergies Allergy Verified 05/19/22 23:21 Consultations 05/20/22 01:59 ED Decision to Admit Stat Hospital Course (1) Alcohol abuse: This is a 52-year-old male with a history of alcohol use disorder with recent rehab completion at [facility], pancreatitis, depression, GERD who presented to [facility] requesting medical alcohol detox assistance. He was hospitalized for oversight and management of withdrawal. Alcohol Withdrawal / Alcohol Use Disorder -- reports consuming 750cc of gin/day; last drink 05/19/22 around 20:00.No h/o seizures. -Librium taper and AWSS protocol while admitted. He was discharged home with Librium to complete taper on 05/23/22. -IV thiamine and folate repletion while admitted -AUD: Has participated in inpatient rehab programs in the past, AA -Patient agreed to naltrexone on discharge; rx sent to pharmacy. -Withdrawal symptoms do appear to be improving and benign neurologic exam on admission -IV PPI during hospitalization --> converted to po on discharge. Rx sent to pharmacy. -Depression management as below Depression patient reports depression. He does not routinely follow with a PCP but states that he does have PCP in [place], [place]. -Records were requested from [facility] rehab but we unfortunately were unable to obtain during patient's hospitalization. -Reportedly on fluoxetine, bupropion, trazodone, hydroxyzine -- restart during hospitalization GERD patient reports severe GERD symptoms. He is on Omeprazole at home but has not been taking it recently -Protonix 40mg IV daily and d/c home with rx for omeprazole as noted above Throat pain -Suspect this is secondary to his emesis episodes -Pain resolved prior to discharge (2) Depression: (3) GERD (gastroesophageal reflux disease): Total Time Total Time Spent Total Time Spent (In Minutes): 20 min at bedside, 15 min chart reviewing and documenting Discharge Plan Discharge Items Patient Disposition: Home - Self-Care Reason For Visit: EtOH withdrawl Discharge Diagnosis: EtOH witdrawal Activity: Per Instructions section Non-emergency contact: Primary Care Provider Call non-emergency contact if: you have any medication questions and your symptoms worsen Follow-up/Referrals: PCP,NO [Primary Care Provider] - Diet: Regular Addtl Attending Provider Instructions: Mr. Bellamy, It was our pleasure to care for you at [facility] from 05/20/22 to 05/22/22. You were admitted with concern for alcohol withdrawal after recent completion of rehab at [facility]. As discussed, it is important that you abstain from alcohol use. A prescription for naltrexone has been sent to the pharmacy as well as prescriptions for librium and omperazole. Please take these medications as prescribed. Additionally, it is important that you follow up with your family doctor in [place], [place]. Please return to the ED for any worsening or concerning symptoms including increased anxiety, tremors, abdominal pain, or vomiting. Pending Studies at Discharge: No Stand-Alone Forms: My [facility], Smoking Cessation Medications and DC Order Prescriptions: New bupropion HCl 300 mg Tablet Extended Release 24 Hr 300 mg PO QAM Qty: 30 0RF chlordiazepoxide HCl 10 mg Capsule See Rx Instructions .ROUTE .COMPLEX 2 Days Qty: 4 0RF Rx Instructions: 10 mg orally; Take 2 capsules (20mg) by mouth tonight (05/22/22) at 9:00pm. Take 1 capsule (10mg) by mouth at 9:00am and again at 9:00pm tomorrow (05/23/22). fluoxetine 20 mg Capsule 20 mg PO QAM 30 Days Qty: 30 0RF omeprazole 40 mg capsule,delayed release(DR/EC) 40 mg PO DAILY Qty: 30 0RF naltrexone 50 mg tablet 50 mg PO DAILY Qty: 14 0RF Discharge Orders: Discharge Order (Routine); Ordered 05/22/22 Ordered By: Sivan Gagnon Admission Data Admit Date/Time: 05/20/22 01:43 Attending Provider: Kelly Ordonez Admit Provider: Shae Jauregui Primary Care Provider: PCP,NO Other Providers: Shae Jauregui Other Interventions: Discharge Summary Assessment (RN) Last Done: 05/22/22 14:37 Supervising Physician Co-Signing Physician Notes 52-year-old male with past medical history of alcohol abuse, GERD, and depression on admission for acute alcohol intoxication and detox. Patient adamant about leaving today. Provided him with a prescription for #4 Librium to complete his taper. Also provided patient with a prescription for naltrexone to bridge him to when he returns back home and reestablishes with his PCP. Patient end[facility]. He plans on catching a bus back to [facility] tomorrow. When asked about home supports, patient stated he did have a supportive environment to return to. Per chart review, patient has endorsed being homeless and having family conflicts. Encouraged patient to continue on his path of sobriety. Patient examined with resident, agree with documentation above. Resident Activity Tracking Resident Involvement: Resident Care Provided Care Provided: Adult Hospital Medicine
[2022-05-23] MEDS ORDERED: buPROPion XL 300 MG TABCR PO SCH (09:00)
[2022-05-23] MEDS ORDERED: FLUoxetine HCL 20 MG CAP PO SCH (09:00)
[2022-05-23] MEDS ORDERED: GABAPENTIN 600 MG TAB PO SCH (12:00)
== END 2022-05-22 14:54 | disposition home or self-care (01) | DRG 897 ==
LOC: ED 22:59 → SUATTDRO 05-20 01:43 → EDINP 05-20 01:43 → 2N 05-20 03:57